=== PATIENT | female | born 1990 | race Caucasian/White ===

== ENCOUNTER 2024-12-07 19:33 | Emergency (ER) | payer BC ==
[~2024-12-07] VITALS: Ht 162.6 cm; Wt 156.8 kg
[2024-12-07] MEDS ORDERED: WELLBUTRIN SR150 M3 PO (19:51)
[2024-12-07 20:12] LABS: BASO # 0.01 K/mm3 (0.02-0.10); EOS # 0.15 K/mm3 (0.04-0.40); EOS % 2.1 % (1.0-5.0); HEMATOCRIT 39.3 % (37.0-47.0); HEMOGLOBIN 12.5 g/dL (12.5-16.0); LYMPH# 2.32 K/mm3 (1.50-4.00); MEAN CELL VOLUME 81 fl (78-100); MEAN CORPUSCULAR HEMOGLOBIN 26 pg (27-31); MEAN CORPUSCULAR HGB CONC 32 g/dL (33-37); MEAN PLATELET VOLUME 10.5 fl (7.4-10.4); MONO # 0.55 K/mm3 (0.20-0.80); NEU # 4.05 K/mm3 (1.40-6.50); PLATELET COUNT 310 K/mm3 (130-400); RED BLOOD COUNT 4.86 M/mm3 (4.10-5.30); RED CELL DISTRIBUTION WIDTH 14.1 % (11.5-14.5); WHITE BLOOD COUNT 7.1 K/mm3 (4.8-10.8)
[2024-12-07 20:19] LABS: ALBUMIN 3.9 g/dL (3.5-5.0)
[2024-12-07 20:21] LABS: CALCIUM 9.4 mg/dL (8.3-10.5)
[2024-12-07 20:22] LABS: TOTAL PROTEIN 7.7 g/dL (6.4-8.3)
[2024-12-07 20:24] LABS: TOTAL BILIRUBIN 0.7 mg/dL (0.2-1.2)
[2024-12-07] MEDS ORDERED: NORETHINDRONE0.35 MG PO (21:56)
[2024-12-07 22:06] VITALS: BP 144/100
== END 2024-12-07 22:26 | disposition home or self-care (01) ==
LOC: ED 19:33
PROVIDERS: Family Medicine
DX: N93.9 Abnormal uterine and vaginal bleeding, unspecified (principal); N97.9 Female infertility, unspecified; E66.01 Morbid (severe) obesity due to excess calories; Z87.42 Personal history of other diseases of the female genital tract; Z68.43 Body mass index [BMI] 50.0-59.9, adult